=== PATIENT | female | born 1995 | race Two or more races ===

== ENCOUNTER → 2019-12-11 16:20 | Outpatient (BNVA) | payer OTHER, SELFPAY | PROVIDERS: Visit Provider Emergency Medicine | DX: R11.0 Nausea (principal); Z20.828 Contact with and (suspected) exposure to other viral communicable diseases; R68.89 Other general symptoms and signs | CPT/HCPCS: 87400; 87635 ==

== ENCOUNTER 2020-03-10 07:19 | Outpatient (CLI) | payer SELFPAY ==
--- NOTE | 2020-03-10 07:30 | MR_ITS ---
WS: [id number] MRI RIGHT FOREARM with and without CONTRAST. COMPARISON: None Multiplanar, multisequence imaging is performed with and without contrast. Expansile T2 and T2 STIR bright mass in the proximal radius extends over length of 4.0 cm. There is m ild variable signal on the T2 and STIR sequences. Mass is very low signal on the T1 sequence. The cor bertha is thinned but still intact. No edema or enhancement of the adjacent muscles. On the postcontrast sequences there is diffuse enhancement. There is a narrow zone of transition of this medullary-based lesion. No fluid fluid level. No additional lesions are noted within the radius or the ulna. There i s no joint effusion. MR/MR forearm RT wo/w con [id number] IMPRESSION: 1. Nonaggressive but expansile and enhancing mass in the proximal radius. Radi ographic correlation and evaluation would also be very helpful to evaluate for long-term stability and matrix. Differential includes giant cell tumor, EG, fib marquis dysplasia and less likely a low-grade malignancy. 2. Due to the expansile lesion and thinning of the cortex patient is at risk f or pathological fracture. Consider orthopedic follow-up and evaluation.
== END 2020-03-10 07:20 | disposition home or self-care (01) ==
LOC: RADSHAW 07:25
PROVIDERS: PCP Physician Assistant Medical; Visit Provider Physician Assistant Medical
DX: M85.621 Other cyst of bone, right upper arm (principal)
CPT/HCPCS: 73220; A9579

== ENCOUNTER → 2020-06-11 12:20 | Outpatient (BNVA) | payer MEDICAID, SELFPAY | PROVIDERS: PCP Physician Assistant Medical; Visit Provider Emergency Medicine | DX: M25.561 Pain in right knee (principal); S89.91XA Unspecified injury of right lower leg, initial encounter; W19.XXXA Unspecified fall, initial encounter | CPT/HCPCS: 73562 ==

== ENCOUNTER → 2020-08-22 10:51 | Outpatient (BNVA) | payer MEDICAID, SELFPAY | PROVIDERS: PCP Physician Assistant Medical; Visit Provider Nurse Practitioner Family | DX: Z20.828 Contact with and (suspected) exposure to other viral communicable diseases (principal) | CPT/HCPCS: 87635 ==

== ENCOUNTER → 2021-01-27 15:54 | Outpatient (BNVA) | payer MEDICAID, SELFPAY | PROVIDERS: PCP Physician Assistant; Visit Provider Nurse Practitioner Family | DX: S80.01XA Contusion of right knee, initial encounter (principal); X58.XXXA Exposure to other specified factors, initial encounter | CPT/HCPCS: 73562 ==

== ENCOUNTER → 2021-03-05 10:50 | Outpatient (BNVA) | payer MEDICAID, SELFPAY | PROVIDERS: PCP Physician Assistant; Visit Provider Nurse Practitioner Family | DX: Z20.822 Contact with and (suspected) exposure to COVID-19 (principal) | CPT/HCPCS: 87635 ==

== ENCOUNTER → 2021-04-10 14:23 | Outpatient (BNVA) | payer MEDICAID, SELFPAY | PROVIDERS: PCP Physician Assistant; Visit Provider Nurse Practitioner Family | DX: M79.631 Pain in right forearm (principal); M89.9 Disorder of bone, unspecified | CPT/HCPCS: 73090 ==

== ENCOUNTER 2021-07-30 14:18 | Emergency (ER) | payer MEDICAID, SELFPAY ==
[2021-07-30 14:26] VITALS: BP 154/103; PULSE 100; RESP 18; TEMP 36.9; O2SAT 99; BMI 30.1
--- NOTE | 2021-07-30 14:28 | XR_ITS ---
WS: [id number] Exam: XR shoulder LT min 2V* [id number] Date/Time of Exam: 07/30/2021 2:28 PM Reason For Exam: pain The projections of the shoulder reveal no fractures, anomalies, soft tissue swelling, or calcificatio ns. There is normal bony alignment. No irregularity of the bony architecture is noted. XR/XR shoulder LT min 2V* [id number] IMPRESSION: Negative left shoulder.
--- NOTE | 2021-07-30 15:27 | W.ED.UPPEXIN ---
HPI - Extremity Injury (Upper) General: Chief Complaint: Extremity Injury, Upper Stated Complaint: L SHOULDER PAIN Time Seen by Provider: 07/30/21 15:15 Source: patient Mode of arrival: ambulatory Limitations: no limitations History of Present Illness: HPI narrative: Patient is a 26-year-old female who presents to ED today with a complaint of left shoulder pain. Patient tells me 4 days ago she believes she experienced a seizure and during which she landed onto her left shoulder. Patient tells me she has had many seizures previously-states she has an upcoming neurology appointment for her seizures and does not want any form of evaluation for this. Patient also has an upcoming appointment with orthopedics regarding a lytic lesion to her radius. complaint: injury to: left and shoulder Onset (ago): day(s) Other Extremity Injury: Left: shoulder Other injuries: none Place: home Severity: moderate Relieving factors: immobilization Exacerbating factors: movement of extremity Context: fall Associated symptoms: Reports no associated symptoms; Denies neck pain or weakness in extremities Review of Systems Const: Denies: fever(s), chills, body aches, fatigue or malaise Eyes: Denies: change in vision Card: Denies: chest pain Resp: Denies: dyspnea GI: Denies: abdominal pain Musc: Reports: joint pain (L shoulder pain); Denies: neck pain, back pain, extremity pain, extremity swelling or joint swelling Neuro: Denies: headache(s), numbness in extremities, weakness in extremities or sensory changes PFSH ED PFSH: Medical History Exposure to influenza Exposure to SARS-associated coronavirus Seizures Surgical History No pertinent past surgical history Family History Other Cancer Diabetes Hypertension Stroke Social History Smoking and tobacco status: never smoked Second hand smoke exposure: No Smoking risk assessment/counseling performed?: No Alcohol intake: current Alcohol intake frequency: holidays/special occasions only Counseling given: No Counseling given: No Adopted: Yes Lives independently: Yes Household members: significant other and children Current gender identity: Female Female Reproductive History: Date of last menstrual period: 07/21/21 Physical Exam Const: COMMON NORMALS: no acute distress, average body habitus, patient oriented x3, no limitations, healthy appearing, alert and well nourished GENERAL APPEARANCE: cooperative ORIENTATION/CONSCIOUSNESS: Yes awake, Yes oriented to person, Yes oriented to place and Yes oriented to time HENMT: COMMON NORMALS: normocephalic and atraumatic HEAD & SCALP: normocephalic and atraumatic Chest: COMMONS NORMALS: normal inspection of the chest and normal palpation of entire chest wall Resp: COMMON NORMALS: normal respiratory effort and clear to auscultation bilaterally AUSCULTATION: clear to auscultation bilaterally Cardio: COMMON NORMALS: regular rate and regular rhythm RATE: regular rate RHYTHM: regular rhythm Back/Pelvis: COMMON NORMALS: thoracic and lumbar spine normal to inspection, no thoracic nor lumbar tenderness and thoraco-lumbar ROM normal Extremity: GENERAL: Yes normal exam except as noted LEFT UPPER EXTREMITY: Yes shoulder joint (TTP AC joint and overlying scapula) Left shoulder joint: Yes ROM (full but somewhat hesitant ROM) and Yes neurovascular exam (normal) Neuro: CASSIUS COMA SCALE: document GCS findings Cassius coma scale eye opening: Spontaneous Cassius coma scale verbal response: Orientated Sesser coma scale motor response: Obey commands Cassius coma scale total score: 15 COMMON NORMALS: patient oriented x3, moves all extremities, no focal motor deficits, no sensory deficits noted and gait normal SENSORIUM/ORIENTATION: Yes alert, Yes oriented to person, Yes oriented to place and Yes oriented to time Skin: COMMON NORMALS: no rashes or lesions noted GENERAL SKIN EXAM: no rashes or lesions noted TRAUMA: no lacerations or abrasions Course Vital Signs: Vital signs: Vital Signs Temperature 98.5 F 07/30/21 14:26 Pulse Rate 90 07/30/21 15:58 Respiratory Rate 20 H 07/30/21 15:58 Blood Pressure 115/77 07/30/21 15:58 Pulse Oximetry 99 07/30/21 15:58 MDM - Extremity Injury (Upper) MDM Narrative: Medical decision making narrative: XR negative. Recommend anti-inflammatories, ice, and rest. She may follow-up with her orthopedic provider/PCP if symptoms persist. Imaging Data^: XR L shoulder: Radiologist's impression: [address] [address] XRay Report Signed Patient: More Aldana Unit #: [id number] : 1995 Age/Sex: 26 / F ADM Date: 07/30/21 Loc: ER Room/Bed: Attending Dr: Ordering Provider/Ordering MD: Marilee Mcconnell Date of Service: 07/30/21 Procedure(s): XR shoulder LT min 2V* 25793 Accession Number(s): [id number] Report Number: [id number] WS: [id number] Exam: XR shoulder LT min 2V* [id number] Date/Time of Exam: 07/30/2021 2:28 PM Reason For Exam: pain The projections of the shoulder reveal no fractures, anomalies, soft tissue swelling, or calcifications. There is normal bony alignment. No irregularity of the bony architecture is noted. XR/XR shoulder LT min 2V* [id number] IMPRESSION: Negative left shoulder. Dictated By: Stiven Dover DO Signed By: Stiven Dover DO Signed Date/Time: 07/30/211458 DD/ 58 Discharge Plan Discharge Patient Disposition: Home Clinical Impression: Injury of left shoulder Qualifiers: Encounter type: initial encounter Qualified Code(s): S49.92XA - Unspecified injury of left shoulder and upper arm, initial encounter Condition: Stable Prescriptions: No Action albuterol sulfate [ProAir HFA] 90 mcg/actuation HFA aerosol inhaler 2 puff inhalation Q6H PRNRF: 0 albuterol sulfate 2.5 mg /3 mL (0.083 %) solution for nebulization 2.5 mg inhalation Q4H PRNRF: 0 dexamethasone 2 mg tablet 6 mg PO DAILY 5 Days Qty: 15 RF: 0 methocarbamol 750 mg tablet 750 mg PO TID 5 Days Qty: 15 RF: 0 tramadol 50 mg tablet 50 mg PO Q6H PRN (Reason: pain) Qty: 14 RF: 0 budesonide-formoterol [Symbicort] 80-4.5 mcg/actuation HFA aerosol inhaler 2 puff inhalation BID 30 Days Qty: 10.2 RF: 4 Discharge Orders: Discharge ED (Routine); Ordered 07/30/21 Ordered By: Marilee Mcconnell Referrals: Cecily Velásquez PA-C [Primary Care Provider] - Patient Instructions: Shoulder Pain (ED) Coding Level of Care Code ED Gaming Table Operator for Lobo Bullock
[2021-07-30 15:58] VITALS: BP 115/77; PULSE 90; RESP 20; O2SAT 99
== END 2021-07-30 16:01 | disposition home or self-care (01) ==
PROVIDERS: Emergency Provider Physician Assistant; PCP Physician Assistant
DX: S49.92XA Unspecified injury of left shoulder and upper arm, initial encounter (principal); W19.XXXA Unspecified fall, initial encounter
CPT/HCPCS: 73030; 99282

== ENCOUNTER 2021-08-29 10:45 | Emergency (ER) | payer MEDICAID, SELFPAY ==
[2021-08-29 11:16] VITALS: BP 127/85; PULSE 90; RESP 14; TEMP 37; O2SAT 100; BMI 30.1
[2021-08-29 11:31] VITALS: RESP 17
--- NOTE | 2021-08-29 11:41 | W.ED.EXTPRO ---
Documented by User: LORENZO Bacon 08/30/21 08:16 HPI - Extremity Problem General: Chief complaint: Extremity Injury, Upper Stated complaint: R ARM INJURY; BURNING AND NUMBNESS Time Seen by Provider: 08/29/21 11:26 History of Present Illness: HPI Narrative: Patient is a 26-year-old female comes to the ED with pain in right arm. She states that earlier this morning she was taking her dog out she was holding the leash and he sprinted off while her right arm was holding leash. It caused her right arm to jerk suddenly. Since then she has been having pain in her right shoulder right elbow and right wrist. Any abduction or movement of arm causes pain. She also reports feeling some numbness and tingling into her hand. She rates her pain currently an 8 out of 10. Patient did say she has a lesion on one of her bones in her forearm that she has had multiple work-ups done and nobody has been able to give her any answers as to what the lesion is. She says it does cause her chronic pain in her right arm and the doctor told her that it is more susceptible to a fracture. Associated symptoms: Deny chest pain, fever(s) or rash Review of Systems Const: Denies: fever(s), chills or fatigue Eyes: Denies: change in vision or eye discomfort ENMT: Denies: throat pain, odynophagia, nasal discharge or nasal congestion Card: Denies: chest pain, palpitations, edema, swelling of feet/ankles, dyspnea on exertion or orthopnea Resp: Denies: dyspnea, productive cough or non-productive cough GI: Denies: abdominal pain, nausea, vomiting, diarrhea, constipation or hematochezia : Denies: flank pain, dysuria or hematuria Musc: Reports: extremity pain (Right shoulder, elbow and wrist) and limited range of motion (right arm); Denies: neck pain, back pain or extremity swelling Skin/Breast: Denies: rash or new lesions Neuro: Denies: headache(s), numbness in extremities or weakness in extremities PFSH ED PFSH: Medical History Exposure to influenza Exposure to SARS-associated coronavirus Seizures Surgical History No pertinent past surgical history Family History Other Cancer Diabetes Hypertension Stroke Social History Smoking and tobacco status: never smoked Second hand smoke exposure: No Smoking risk assessment/counseling performed?: No Alcohol intake: current Alcohol intake frequency: holidays/special occasions only Counseling given: No Counseling given: No Adopted: Yes Lives independently: Yes Household members: significant other and children Current gender identity: Female Female Reproductive History: Date of last menstrual period: 07/21/21 Physical Exam Const: COMMON NORMALS: no acute distress, patient oriented x3, healthy appearing and alert GENERAL APPEARANCE: cooperative and comfortable HENMT: COMMON NORMALS: normocephalic HEAD & SCALP: normocephalic MOUTH: Normal oral and palatal mucosa present THROAT: posterior oropharynx normal and uvula midline Neck/C-Spine: COMMON NORMALS: supple GENERAL: Yes normal visual inspection Resp: COMMON NORMALS: normal respiratory effort, No retractions, No use of accessory muscles and clear to auscultation bilaterally AUSCULTATION: clear to auscultation bilaterally Cardio: COMMON NORMALS: regular rate, regular rhythm, S1 normal heart sound present, S2 normal heart sound present, No gallops present (Cardio), No clicks present (Cardio), No murmurs present (Cardio) and Peripheral pulses 2+ throughout RATE: regular rate RHYTHM: regular rhythm HEART SOUNDS: S1 normal heart sound present and S2 normal heart sound present PERIPHERAL PULSES: Peripheral pulses 2+ throughout GI: COMMON NORMALS: Normal to inspection, nondistended, normoactive bowel sounds present, Soft to palpation, non-tender and no masses PALPATION: Yes Soft to palpation : COMMON NORMALS: Yes no CVA tenderness BLADDER/KIDNEY EXAM: Yes no CVA tenderness Back/Pelvis: COMMON NORMALS: no CVA tenderness Extremity: NARRATIVE EXTREMITY EXAM: Patient has some tenderness to her AC joint of right shoulder. She also has tenderness to palpation of medial and lateral aspect of right elbow. She has pain in elbow and wrist with any range of motion. Neurovascular intact distally. GENERAL: Yes normal exam except as noted Neuro: COMMON NORMALS: patient oriented x3 and moves all extremities SENSORIUM/ORIENTATION: Yes alert Skin: GENERAL SKIN EXAM: dry skin Course Vital Signs: Vital signs: Vital Signs Temperature 98.6 F 08/29/21 11:16 Pulse Rate 97 08/29/21 14:12 Respiratory Rate 17 08/29/21 14:12 Blood Pressure 116/79 08/29/21 14:12 Pulse Oximetry 99 08/29/21 14:12 MDM - Extremity (Nontraumatic) MDM Narrative: Medical decision making narrative: Patient is a 26-year-old female comes to the ED with right arm injury. Patient says she was taking her dog out and the dog took off while she was holding the leash in right hand. This caused a pulling on her arm and since then she felt up pain in her shoulder, elbow and wrist. Patient did say she has a history of a bone lesion on her radius read by her elbow. She has seen specialists in [place] about the bone lesion and they were not sure what it was and she has not had any other further follow-up. Vital stable. Exam shows some tenderness to palpation over AC joint, elbow. She has pain with range of motion in wrist and elbow. She is neurovascular intact distally. X-ray of wrist elbow and shoulder showed no acute fractures. Patient's elbow x-ray did show the bone lesion and there were some concerns of it changing compared to x-ray done approximately 5 months ago. I talked with Dr. Chamberlain about patient case and the bone lesion findings and he agreed that patient should be referred to Ortho and oncology for further evaluation of the lesion. I put in a referral with case management for patient be seen by orthopedic and oncology for follow-up and further evaluation of bone lesion. Patient was discharged home with a sling and told that case management social worker only contacting the next several days set up an appointment for further evaluation of bone lesion with Ortho and oncology if needed. Patient understood and agree with plan. Imaging Data^: Xray Ortho: Attestation: I personally reviewed and interpreted this imaging study as follows: Radiologist's impression: [address] [place] [address] XRay Report Signed Patient: More Aldana Unit #: [id number] : 1995 Age/Sex: 26 / F ADM Date: 08/29/21 Loc: ER Room/Bed: Attending Dr: Ordering Provider/Ordering MD: Rivera Alexandra Date of Service: 08/29/21 Procedure(s): XR elbow RT min 3V* 43811 Accession Number(s): [id number] Report Number: [id number] WS: [id number] XR elbow RT min 3V* 23574 REASON FOR EXAM: elbow injury with pain, limited ROM FINDINGS: No fracture or dislocation. Compared to previous examination of 04/10/2021 the bone lesion in the proximal radial diaphysis is again noted. No findings of pathologic fracture involving this lesion. No periosteal reaction. No soft tissue abnormality. XR/XR elbow RT min 3V* 71068 IMPRESSION: No acute abnormality. In comparing the lateral view of the current study and the lateral view of, the central/distal portion of this lesion appears to be expanding, producing a larger anterior bulge in the margin of the radius with more thinning of the cortex. The lesion also appears to be more lucent. If this impression is accurate, this would be of concern. Eosinophilic granuloma and giant cell tumor can appear aggressive. Giant cell tumor can develop into aneurysmal bone cyst with increased expansion and thinning of the cortex. The cortex is thinned to the point, that at the this time risk for pathologic fracture would seem significant. This lesion may need to be reevaluated clinically. Dictated By: Balwinder Magaña Jr, MD Signed By: Balwinder Magaña Jr, MD Signed Date/Time: 08/29/21 1240 DD/ [address] [address] XRay Report Signed Patient: More Aldana Unit #: [id number] : 1995 Age/Sex: 26 / F ADM Date: 08/29/21 Loc: ER Room/Bed: Attending Dr: Ordering Provider/Ordering MD: Rivera Alexandra Date of Service: 08/29/21 Procedure(s): XR wrist RT min 3V* 59557 Accession Number(s): [id number] Report Number: [id number] WS: [id number] XR wrist RT min 3V* 95650 REASON FOR EXAM: wrist injury with pain and limite ROM FINDINGS: No fracture or dislocation. No focal bone lesion. Joint spaces are well preserved. No soft tissue abnormality. XR/XR wrist RT min 3V* [id number] IMPRESSION: No acute abnormality. Dictated By: Balwinder Magaña Jr, MD Signed By: Balwinder Magaña Jr, MD Signed Date/Time: 08/29/21 1243 DD/ [address] [address] XRay Report Signed Patient: More Aldana Unit #: [id number] : 1995 Age/Sex: 26 / F ADM Date: 08/29/21 Loc: ER Room/Bed: Attending Dr: Ordering Provider/Ordering MD: Rivera Alexandra Date of Service: 08/29/21 Procedure(s): XR shoulder RT min 2V* 38050 Accession Number(s): [id number] Report Number: [id number] WS: [id number] XR shoulder RT min 2V* 30082 REASON FOR EXAM: shoulder injury with pain FINDINGS: No fracture or dislocation. Normal alignment of the acromial clavicular joint and the glenohumeral joint. No focal bone lesion. No soft tissue abnormality. XR/XR shoulder RT min 2V* 98072 IMPRESSION: No acute abnormality. Dictated By: Balwinder Magaña Jr, MD Signed By: Balwinder Magaña Jr, MD Signed Date/Time: 08/29/21 1205 DD/ 1201 Discharge Plan Discharge Patient Disposition: Home Clinical Impression: Arm pain, right, Radiolucent lesion of bone Condition: Stable Prescriptions: No Action albuterol sulfate [ProAir HFA] 90 mcg/actuation HFA aerosol inhaler 2 puff inhalation Q6H PRNRF: 0 albuterol sulfate 2.5 mg /3 mL (0.083 %) solution for nebulization 2.5 mg inhalation Q4H PRNRF: 0 dexamethasone 2 mg tablet 6 mg PO DAILY 5 Days Qty: 15 RF: 0 methocarbamol 750 mg tablet 750 mg PO TID 5 Days Qty: 15 RF: 0 tramadol 50 mg tablet 50 mg PO Q6H PRN (Reason: pain) Qty: 14 RF: 0 budesonide-formoterol [Symbicort] 80-4.5 mcg/actuation HFA aerosol inhaler 2 puff inhalation BID 30 Days Qty: 10.2 RF: 4 Discharge Orders: Discharge ED (Routine); Ordered 08/29/21 Ordered By: Rivera Alexandra Referrals: Cecily Velásquez PA-C [Primary Care Provider] - Discharge Diet: Regular Discharge Activity: Limit activity as instructed Patient Instructions: Arm Pain (ED), Opioid Safety Activity Restrictions/Additional Instructions: Follow-up with medical provider as directed. Case management should be contacting you in the next several days to set up an appointment with Ortho for further evaluation of bone lesion. Take medications as prescribed. Return to the ER or your medical provider if condition worsens. Please read and understand discharge instructions. Thank you for choosing [facility] for your healthcare needs today. Please realize this is an emergency room and that we are providing you with a medical screening exam and this may not be complete and all inclusive of all the testing and or work up that you may need to determine your ailment or severity of your illness. It is very important that you follow up as instructed or that you return to the Emergency Department should you have concerns or if your condition changes or worsens in any way. Stand Alone Forms: Work/School Release Coding Level of Care Code ED School Traffic Supervisor for Chg Fwd Exam Comprehensive Documented by User: Ken Chamberlain DO 08/30/21 15:42 HPI - Extremity Problem General: Chief complaint: Extremity Injury, Upper Stated complaint: R ARM INJURY; BURNING AND NUMBNESS Time Seen by Provider: 08/29/21 11:26 [facility]: Medical History Exposure to influenza Exposure to SARS-associated coronavirus Seizures Surgical History No pertinent past surgical history Family History Other Cancer Diabetes Hypertension Stroke Social History Smoking and tobacco status: never smoked Second hand smoke exposure: No Smoking risk assessment/counseling performed?: No Alcohol intake: current Alcohol intake frequency: holidays/special occasions only Counseling given: No Counseling given: No Adopted: Yes Lives independently: Yes Household members: significant other and children Current gender identity: Female Course Vital Signs: Vital signs: Vital Signs Temperature 98.6 F 08/29/21 11:16 Pulse Rate 97 08/29/21 14:12 Respiratory Rate 17 08/29/21 14:12 Blood Pressure 116/79 08/29/21 14:12 Pulse Oximetry 99 08/29/21 14:12 MDM - Extremity (Nontraumatic) MDM Narrative: Medical decision making narrative: Chart reviewed and patient discussed with midlevel. Agree with assessment and plan. Discharge Plan Discharge Patient Disposition: Home Clinical Impression: Arm pain, right, Radiolucent lesion of bone Condition: Stable Prescriptions: No Action albuterol sulfate [ProAir HFA] 90 mcg/actuation HFA aerosol inhaler 2 puff inhalation Q6H PRNRF: 0 albuterol sulfate 2.5 mg /3 mL (0.083 %) solution for nebulization 2.5 mg inhalation Q4H PRNRF: 0 dexamethasone 2 mg tablet 6 mg PO DAILY 5 Days Qty: 15 RF: 0 methocarbamol 750 mg tablet 750 mg PO TID 5 Days Qty: 15 RF: 0 tramadol 50 mg tablet 50 mg PO Q6H PRN (Reason: pain) Qty: 14 RF: 0 budesonide-formoterol [Symbicort] 80-4.5 mcg/actuation HFA aerosol inhaler 2 puff inhalation BID 30 Days Qty: 10.2 RF: 4 Discharge Orders: Discharge ED (Routine); Ordered 08/29/21 Ordered By: Rivera Alexandra Referrals: Cecily Velásquez PA-C [Primary Care Provider] - Discharge Diet: Regular Discharge Activity: Limit activity as instructed Patient Instructions: Arm Pain (ED), Opioid Safety Activity Restrictions/Additional Instructions: Follow-up with medical provider as directed. Case management should be contacting you in the next several days to set up an appointment with Ortho for further evaluation of bone lesion. Take medications as prescribed. Return to the ER or your medical provider if condition worsens. Please read and understand discharge instructions. Thank you for choosing [facility] for your healthcare needs today. Please realize this is an emergency room and that we are providing you with a medical screening exam and this may not be complete and all inclusive of all the testing and or work up that you may need to determine your ailment or severity of your illness. It is very important that you follow up as instructed or that you return to the Emergency Department should you have concerns or if your condition changes or worsens in any way. Stand Alone Forms: Work/School Release Coding Level of Care Code ED School Traffic Supervisor for Irag Fwd Exam Comprehensive
--- NOTE | 2021-08-29 11:42 | XR_ITS ---
WS: [id number] XR wrist RT min 3V* [id number] REASON FOR EXAM: wrist injury with pain and limite ROM FINDINGS: No fracture or dislocation. No focal bone lesion. Joint spaces are well preserved. No soft tissue abnormality. XR/XR wrist RT min 3V* 04629 IMPRESSION: No acute abnormality.
--- NOTE | 2021-08-29 11:42 | XR_ITS ---
WS: [id number] XR elbow RT min 3V* 15958 REASON FOR EXAM: elbow injury with pain, limited ROM FINDINGS: No fracture or dislocation. Compared to previous examination of 04/10/2021 the bone lesion in the proximal radial diaphysis is aga in noted. No findings of pathologic fracture involving this lesion. No periosteal reaction. No soft tissue abnormality. XR/XR elbow RT min 3V* 72208 IMPRESSION: No acute abnormality. In comparing the lateral view of the current study and the lateral view of, the central/distal portion of this lesion appears to be expanding, producing a lar josee anterior bulge in the margin of the radius with more thinning of the cortex . The lesion also appears to be more lucent. If this impression is accurate, th is would be of concern. Eosinophilic granuloma and giant cell tumor can appear aggressive. Giant cell t umor can develop into aneurysmal bone cyst with increased expansion and thinnin g of the cortex. The cortex is thinned to the point, that at the this time risk for pathologic fracture would seem significant. This lesion may need to be ree valuated clinically.
--- NOTE | 2021-08-29 11:42 | XR_ITS ---
WS: [id number] XR shoulder RT min 2V* [id number] REASON FOR EXAM: shoulder injury with pain FINDINGS: No fracture or dislocation. Normal alignment of the acromial clavicular joint and the glenohumeral joint. No focal bone lesion. No soft tissue abnormality. XR/XR shoulder RT min 2V* [id number] IMPRESSION: No acute abnormality.
[2021-08-29] MEDS: HYDROcodone-acetaminophen 7.5-325 mg Tablet 1 TAB PO (12:14)
[2021-08-29 14:12] VITALS: BP 116/79; PULSE 97; RESP 17; O2SAT 99
--- NOTE | 2021-08-30 10:34 | DCPLANNER ---
newspaper manager had message to schedule a follow up appointment for patient with ortho. newspaper manager called the ortho clinic, spoke with Nicole, gave clinic patients information. newspaper manager was told that patients information would be printed and reviewed. Clinic will call patient with appointment information.
--- NOTE | 2021-08-31 08:01 | DCPLANNER ---
Addendum entered by Asuncion Louise 10/12/21 15:39: Patient had a follow up appointment scheduled with ortho 09.19.21 - patient did attend appointment. Original Note: Patient has a follow up appointment scheduled for Sunday, September 19, 2021 at 10:[address] Mina at ortho. Clinic will call patient with appointment information.
== END 2021-08-29 14:04 | disposition home or self-care (01) ==
PROVIDERS: Emergency Provider Physician Assistant; PCP Physician Assistant
DX: M79.601 Pain in right arm (principal); M89.9 Disorder of bone, unspecified
CPT/HCPCS: 73030; 73080; 73110; 99283

== ENCOUNTER → 2021-09-24 14:47 | Outpatient (BNVA) | payer MEDICAID, SELFPAY | PROVIDERS: PCP Physician Assistant; Visit Provider Nurse Practitioner Family | DX: M89.9 Disorder of bone, unspecified (principal) | CPT/HCPCS: 73090 ==

== ENCOUNTER → 2021-10-04 17:08 | Outpatient (BNVA) | payer MEDICAID, SELFPAY | PROVIDERS: PCP Physician Assistant; Visit Provider Emergency Medicine | DX: M89.9 Disorder of bone, unspecified (principal) | CPT/HCPCS: 73090 ==

== ENCOUNTER 2021-10-25 11:21 | Emergency (ER) | payer MEDICAID, SELFPAY ==
[2021-10-25 12:02] VITALS: BP 128/85; PULSE 89; RESP 18; TEMP 36.6; O2SAT 99; BMI 31.8
--- NOTE | 2021-10-25 12:20 | XR_ITS ---
WS: [id number] XR forearm RT 2V [id number] REASON FOR EXAM: history of lytic bone lesion, injury with increased pain FINDINGS: Bone lesion in the right proximal radius which is been described on multiple radiographs since 021. Lesion has continued to grow and expand since that time. It has expanded 10 mm in short diameter compared to the previous examination of 10/04/2021. Cortex overlying this lesion is extremely thin an d in places is absent. The lesion involves the full diameter of the radius. No fracture identified at this time. XR/XR forearm RT 2V [id number] IMPRESSION: Continuing expansion of the lesion in the proximal left right radius as above. Minor trauma would likely fracture the radius at this point.
--- NOTE | 2021-10-25 12:22 | ED_ITS ---
HPI - Extremity Problem General: Chief complaint: Extremity Injury, Upper Stated complaint: Right Wrist pain, PT states a hole in radius bone Time Seen by Provider: 10/25/21 12:08 History of Present Illness: Patient is a 26-year-old female comes to the ED with right forearm pain. Patient has a known lytic bone lesion and forearm and is currently scheduled to see a specialist in [facility] next week. Over the past couple days she has been moving furniture and stuff around her house and she is now having increased pain in right forearm. She was supposed to be in soft cast and not using right arm and till seen by specialist in [place] but patient says the soft cast was uncomfortable so she has not been wearing it and threw it away. Denies any fall or any other injury to the right arm. Patient thinks she overworked her right arm moving stuff which is causing her symptoms. She is just been taking Tylenol for pain. Pain is rated an 8 out of 10. Associated symptoms: Deny chest pain, fever(s) or rash Review of Systems Const: Denies: fever(s), chills or fatigue Eyes: Denies: change in vision or eye discomfort ENMT: Denies: throat pain, odynophagia, nasal discharge or nasal congestion Card: Denies: chest pain, palpitations, edema, swelling of feet/ankles, dyspnea on exertion or orthopnea Resp: Denies: dyspnea, productive cough or non-productive cough GI: Denies: abdominal pain, nausea, vomiting, diarrhea, constipation or hematochezia : Denies: flank pain, dysuria or hematuria Musc: Reports: extremity pain (right forearm); Denies: neck pain, back pain or extremity swelling Skin/Breast: Denies: rash or new lesions Neuro: Denies: headache(s), numbness in extremities or weakness in extremities PFSH ED PFSH: Medical History Exposure to influenza Exposure to SARS-associated coronavirus Seizures Surgical History No pertinent past surgical history Family History Other Cancer Diabetes Hypertension Stroke Social History Second hand smoke exposure: No Smoking risk assessment/counseling performed?: No Alcohol intake: current Alcohol intake frequency: holidays/special occasions only Counseling given: No Counseling given: No Adopted: Yes Lives independently: Yes Household members: significant other and children Current gender identity: Female Female Reproductive History: Date of last menstrual period: 07/21/21 Physical Exam Const: COMMON NORMALS: no acute distress, patient oriented x3 and alert GENERAL APPEARANCE: cooperative and comfortable HENMT: COMMON NORMALS: normocephalic HEAD & SCALP: normocephalic MOUTH: Normal oral and palatal mucosa present THROAT: posterior oropharynx normal an d uvula midline Neck/C-Spine: COMMON NORMALS: supple GENERAL: Yes normal visual inspection Resp: COMMON NORMALS: normal respiratory effort, No retractions, No use of accessory muscles and clear to auscultation bilaterally AUSCULTATION: clear to auscultation bilaterally Cardio: COMMON NORMALS: regular rate, regular rhythm, S1 normal heart sound present, S2 normal heart sound present, No gallops present (Cardio), No clicks present (Cardio), No murmurs present (Cardio) and Peripheral pulses 2+ throughout RATE: regular rate RHYTHM: regular rhythm HEART SOUNDS: S1 normal heart sound present and S2 normal heart sound present PERIPHERAL PULSES: Peripheral pulses 2+ throughout GI: COMMON NORMALS: Normal to inspection, nondistended, normoactive bowel sounds present, Soft to palpation, non-tender and no masses PALPATION: Yes Soft to palpation : COMMON NORMALS: Yes no CVA tenderness BLADDER/KIDNEY EXAM: Yes no CVA tenderness Back/Pelvis: COMMON NORMALS: no CVA tenderness Extremity: NARRATIVE EXTREMITY EXAM: Right forearm?no visible deformity, ecchymosis or swelling seen. Patient does have some proximal forearm tenderness to palpation. Neurovascular intact distally. Neuro: COMMON NORMALS: patient oriented x3 and moves all extremities SENSORIUM/ORIENTATION: Yes alert Skin: COMMON NORMALS: no rashes or lesions noted GENERAL SKIN EXAM: no rashes or lesions noted and dry skin Course Vital Signs: Vital signs: Vital Signs Temperature 97.9 F 10/25/21 12:02 Pulse Rate 81 10/25/21 13:32 Respiratory Rate 16 10/25/21 13:32 Blood Pressure 118/86 10/25/21 13:32 Pulse Oximetry 99 10/25/21 13:32 MDM - Extremity (Nontraumatic) Medical Decision Making Patient is a 26-year-old female comes to the ED with right forearm pain. Patient has a known lytic bone lesion and forearm that she is currently getting further evaluation for. She has an appointment with a specialist that she was referred to up in [facility] to further evaluate bone lesion. She was moving some things around her house and is now having some increased pain in right forearm. No visible deformity seen but there is some proximal right forearm tenderness to palpation. Neurovascular tact distally. X-ray of right forearm showed continuing expansion of bone lesion in proximal left right radius. She is at increased risk of fracturing bones due to lesion. Patient was put in a long-arm splint and sling and discharged home with a prescription for hydrocodone for pain. She has an appointment to see the specialist next week for further evaluation. Return to ED precautions given. Patient understood agree with plan. Lab Data Radiology Impressions Forearm X-Ray 10/25/21 12:20 IMPRESSION: Continuing expansion of the lesion in the proximal left right radius as above. Minor trauma would likely fracture the radius at this point. Discharge Plan Discharge Patient Disposition: Home Clinical Impression: Lytic lesion of bone on x-ray Condition: Stable Prescriptions: No Action albuterol sulfate [ProAir HFA] 90 mcg/actuation HFA aerosol inhaler 2 puff inhalation Q6H PRN0RF albuterol sulfate 2.5 mg /3 mL (0.083 %) solution for nebulization 2.5 mg inhalation Q4H PRN0RF gabapentin 100 mg capsule 100 mg PO DAILY Qty: 60 0RF Discharge Orders: Discharge ED (Routine); Ordered 10/25/21 Ordered By: Rivera Alexandra Referrals: Cecily Velásquez PA-C [Primary Care Provider] - Discharge Diet: Regular Discharge Activity: Limit activity as instructed Patient Instructions: Opioid Safety Activity Restrictions/Additional Instructions: Follow-up with your specialist in [facility] next week as scheduled. Take medications as prescribed. Keep splint on and dry and limit activity with right arm. Return to the ER or your medical provider if condition worsens. Please read and understand discharge instructions. Thank you for choosing [facility] for your healthcare needs today. Please realize this is an emergency room and that we are providing you with a medical screening exam and this may not be complete and all inclusive of all the testing and or work up that you may need to determine your ailment or severity of your illness. It is very important that you follow up as instructed or that you return to the Emergency Department should you have concerns or if your condition changes or worsens in any way. Coding Level of Care Code ED Printed Circuit Board Preassembler for Lobo Bullock Exam Comprehensive
[2021-10-25 13:32] VITALS: BP 118/86; PULSE 81; RESP 16; O2SAT 99
== END 2021-10-25 13:32 | disposition home or self-care (01) ==
PROVIDERS: Emergency Provider Physician Assistant; PCP Physician Assistant
DX: M89.9 Disorder of bone, unspecified (principal)
CPT/HCPCS: 29105; 73090; 99283

== ENCOUNTER → 2021-11-20 08:09 | Outpatient (BNVA) | payer MEDICAID, SELFPAY | PROVIDERS: PCP Physician Assistant; Referring Provider Orthopaedic Surgery; Visit Provider Specialist | DX: G56.21 Lesion of ulnar nerve, right upper limb (principal) | CPT/HCPCS: 95886; 95908; 99202 ==

== ENCOUNTER → 2021-12-13 16:26 | Outpatient (BNVA) | payer MEDICAID, SELFPAY | PROVIDERS: PCP Physician Assistant; Visit Provider Emergency Medicine | DX: M89.9 Disorder of bone, unspecified (principal); M79.631 Pain in right forearm | CPT/HCPCS: 73090 ==

== ENCOUNTER 2022-04-19 16:36 | Emergency (ER) | payer MEDICAID, SELFPAY ==
[2022-04-19 16:49] VITALS: BP 131/82; PULSE 94; RESP 16; TEMP 36.6; O2SAT 98
[2022-04-19 18:49] LABS: Basophils % 0.3 %; Eosinophils # 0.2 10^3/uL (0.0-0.8); Eosinophils % 2.3 %; Hematocrit 41.1 % (37.0-47.0); Hemoglobin 13.3 g/dL (11.5-15.3); Lymphocytes # 2.3 10^3/uL (0.8-4.8); Lymphocytes % 22.8 %; Mean Corpuscular HGB Conc 32.4 g/dL (30.0-36.0); Mean Corpuscular Hemoglobin 29.7 pg (28.0-34.0); Mean Corpuscular Volume 91.7 fl (81-99); Mean Platelet Volume 10.7 fL (7.4-10.4); Monocytes # 0.7 10^3/uL (0.2-0.9); Monocytes % 7.3 %; Neutrophils # 6.65 10^3/uL (1.8-7.7); Neutrophils % 67.1 %; Nucleated Red Blood Cells % 0 %; Platelet Count 327 10^3/cmm (130-400); Red Blood Count 4.48 10^6/uL (4.1-5.3); Red Cell Distribution Width 12.3 % (12.1-15.1); White Blood Count 9.9 10^3/uL (4.0-10.0)
[2022-04-19 19:25] LABS: Alanine Aminotransferase 9 U/L (0-33); Albumin Level 4.2 g/dL (3.5-5.2); Alkaline Phosphatase 76 IU/L (35-105); Aspartate Amino Transferase 12 U/L (0-32); Blood Urea Nitrogen 13 mg/dL (6-20); Calcium 8.9 mg/dL (8.5-10.5); Carbon Dioxide 26 mmol/L (22-29); Chloride 106 mmol/L (98-107); Globulin 2.7 g/dL (1.3-4.6); Glomerular Filtration Rate 121.8 mL/min (90-130); Glucose 111 mg/dL (65-115); Osmolality Calculated 291 mOsm/kg (285-295); Prolactin 11.46 ng/mL (4.8-23.3); Sodium 140 mmol/L (136-145); Total Bilirubin 0.2 mg/dL (0.15-1.2); Total Protein 6.9 g/dL (6.6-8.7)
--- NOTE | 2022-04-19 19:51 | ED_ITS ---
HPI - Chest Pain General: Chief Complaint: Chest Pain Stated Complaint: Seizure like activity? Heart palpitations Time Seen by Provider: 04/19/22 19:51 History of Present Illness: Ms. Aldana is a 27-year-old lady with history of bony tumor, history of COVID, asthma, seizures and nonepileptic events who presents to the emergency department due to concern of chest pain and headache. Headache is throbbing in nature onset was sudden approximately 5 days ago. She endorses constant symptoms that sometimes radiate down the side of her neck. She reports associated nausea but no vomiting. She does have light and sound sensitivity. She additionally endorses episodes of missing time or seizure-like activity associated with headache. Denies history of migraines. 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 Additionally she reports longstanding history of chest discomfort which is intermittent in nature. She reports a history of having this evaluated though the results were lost and she does not know what the results are. She notes baseline tachycardia and becomes more symptomatic with irregular pulse whenever her heart rate drops below 70. No other specific changes in health, exacerbating, or alleviating factors identified. Onset (ago): month(s) Timing of current episode: episodic Prior episodes: Yes Pain location: substernal Severity: moderate Quality: heaviness Associated symptoms: Reports palpitations Review of Systems General: Reports: 10 or more systems reviewed and unremarkable except in HPI and below Card: Reports: palpitations [facility] ED PFSH: Medical History Exposure to influenza Exposure to SARS-associated coronavirus Seizures Surgical History No pertinent past surgical history Family History Other Cancer Diabetes Hypertension Stroke Social History Smoking and tobacco status: never smoked Second hand smoke exposure: No Smoking risk assessment/counseling performed?: No Alcohol intake: current Alcohol intake frequency: holidays/special occasions only Counseling given: No Counseling given: No Adopted: Yes Lives independently: Yes Household members: significant other and children Current gender identity: Female Female Reproductive History: Date of last menstrual period: 07/21/21 Physical Exam Const: COMMON NORMALS: patient oriented x3 and alert GENERAL APPEARANCE: cooperative and well developed HENMT: COMMON NORMALS: normocephalic and atraumatic HEAD & SCALP: normocephalic and atraumatic THROAT: posterior oropharynx normal Eye: COMMON NORMALS: conjunctivae normal CONJUNCTIVA: Yes conjunctivae normal SCLERA: sclerae normal Neck/C-Spine: COMMON NORMALS: supple GENERAL: Yes trachea midline Resp: COMMON NORMALS: normal respiratory effort EFFORT & INSPECTION: Yes able to speak in complete sentences Cardio: COMMON NORMALS: regular rate and regular rhythm RATE: regular rate RHYTHM: regular rhythm HEART SOUNDS: Murmur heart sound present (10/21) GI: COMMON NORMALS: Soft to palpation PALPATION: Yes Soft to palpation and No Tenderness to palpation present (GI) PERCUSSION: normal to percussion Extremity: GENERAL: Yes normal exam except as noted and No edema Neuro: COMMON NORMALS: patient oriented x3, CN's II-XII intact bilaterally, moves all extremities, no focal motor deficits and no sensory deficits noted SENSORIUM/ORIENTATION: Yes alert and No Orientation impaired Psych: COMMON NORMALS: mental status grossly normal and Normal thought process present THOUGHT PROCESS: Normal thought process present Course ED course: - Patient was seen and evaluated by me at bedside - Patient placed on cardiac monitors, IV access obtained - Initial evaluation notable for exam as above - Labs and xrays personally interpreted by me. EKG shows sinus rhythm, no STEMI - Fluids, analgesia, and headache treatment given - Labs notable for no leukocytosis, normal hemoglobin. No acute metabolic arrangement. Delta troponin negative. Negative urinalysis - Imaging notable for no lobar consolidation or pneumothorax. Given change in headache CT head ordered and negative. - Upon serial reexamination after treatment the patient was improved - Based on patient history, evaluation, and testing as interpreted the most likely cause of the patient's condition is chest pain and headache with appropriate improvement in headache and low risk by heart score for chest pain. - The results of ED evaluation were discussed with the patient including prescriptions and/or symptomatic cares (if applicable) including appropriate and responsible use, followup plan, and return precautions. The patient verbalized understanding and felt safe for discharge. - Patient discharged in satisfactory condition. Note: Click bubbles or prepopulated carey in note writing are used for assistance with data collection and billing and are inherently more limited than narrative and other text portions of this note. Please use narrative for additional clinical history and defer to narrative/free test for any case of contradictory information. If information appears in only free text or click bubble it should be considered present or absent as reported. Please contact note fiction and nonfiction writer prose for clarifications of clinical information or contradictory information. MDM is a brief summary, contradictory or erroneous seeming information should be clarified and full note should be reviewed. Vital Signs: Vital signs: Vital Signs Temperature 97.8 F 04/19/22 16:49 Pulse Rate 71 04/19/22 23:00 Respiratory Rate 23 H 04/19/22 23:00 Blood Pressure 112/71 04/19/22 23:00 Pulse Oximetry 99 04/19/22 23:00 Oxygen Delivery Me thod 04/19/22 23:00 MDM - Chest Pain Medical Decision Making 27-year-old lady presenting with chest pain and change in headache from normal headaches. No focal neurodeficits. ED evaluation negative for acute cause. Patient is overall low risk and had improvement in headache with treatment. Satisfactory for outpatient management. Medical Records I reviewed the patient's medical records. Lab Data I reviewed the patient's lab results. : 04/19/22 18:40 04/19/22 18:40 Radiology Impressions Chest X-Ray 04/19/22 21:03 IMPRESSION: No acute findings. Head CT 04/19/22 21:03 IMPRESSION: No acute intracranial abnormality. Laboratory Results WBC 9.9 10^3/uL (4.0-10.0) 04/19/22 18:40 RBC 4.48 10^6/uL (4.1-5.3) 04/19/22 18:40 Hgb 13.3 g/dL (11.5-15.3) 04/19/22 18:40 Hct 41.1 % (37.0-47.0) 04/19/22 18:40 MCV 91.7 fl (81-99) 04/19/22 18:40 MCH 29.7 pg (28.0-34.0) 04/19/22 18:40 MCHC 32.4 g/dL (30.0-36.0) 04/19/22 18:40 RDW 12.3 % (12.1-15.1) 04/19/22 18:40 Plt Count 327 10^3/cmm (130-400) 04/19/22 18:40 MPV 10.7 fL (7.4-10.4) H 04/19/22 18:40 Neut % (Auto) 67.1 % 04/19/22 18:40 Lymph % (Auto) 22.8 % 04/19/22 18:40 [place] % (Auto) 7.3 % 04/19/22 18:40 Eos % (Auto) 2.3 % 04/19/22 18:40 Baso % (Auto) 0.3 % 04/19/22 18:40 Neut # (Auto) 6.65 10^3/uL (1.8-7.7) 04/19/22 18:40 Lymph # (Auto) 2.3 10^3/uL (0.8-4.8) 04/19/22 18:40 [place] # (Auto) 0.7 10^3/uL (0.2-0.9) 04/19/22 18:40 Eos # (Auto) 0.2 10^3/uL (0.0-0.8) 04/19/22 18:40 Baso # (Auto) 0.0 10^3/uL (0.0-0.1) 04/19/22 18:40 Nucleated RBC % (auto) 0 % 04/19/22 18:40 Nucleated RBCs # 0.0 /100WBC 04/19/22 18:40 D-Dimer 0.53 ug/mIFEU (0-0.59) 04/19/22 20:25 Sodium 140 mmol/L (136-145) 04/19/22 18:40 Potassium 4.0 mmol/L (3.5-5.1) 04/19/22 18:40 Chloride 106 mmol/L (98-107) 04/19/22 18:40 Carbon Dioxide 26 mmol/L (22-29) 04/19/22 18:40 Anion Gap 12.0 (5-19) 04/19/22 18:40 BUN 13 mg/dL (6-20) 04/19/22 18:40 Creatinine 0.6 mg/dL (0.5-0.9) 04/19/22 18:40 GFR Calculation 121.8 mL/min (90-130) 04/19/22 18:40 Glucose 111 mg/dL (65-115) 04/19/22 18:40 Calculated Osmolality 291 mOsm/kg (285-295) 04/19/22 18:40 Calcium 8.9 mg/dL (8.5-10.5) 04/19/22 18:40 Total Bilirubin 0.2 mg/dL (0.15-1.2) 04/19/22 18:40 AST 12 U/L (0-32) 04/19/22 18:40 ALT 9 U/L (0-33) 04/19/22 18:40 Alkaline Phosphatase 76 IU/L (35-105) 04/19/22 18:40 Troponin T Baseline 6 ng/L (0-10) 04/19/22 20:25 Troponin T 120 Minute 6.00 ng/L (0-10) 04/19/22 22:00 Delta Troponin T 0 ABS# (0-10) 04/19/22 22:00 Total Protein 6.9 g/dL (6.6-8.7) 04/19/22 18:40 Albumin 4.2 g/dL (3.5-5.2) 04/19/22 18:40 Globulin 2.7 g/dL (1.3-4.6) 04/19/22 18:40 Prolactin 11.46 ng/mL (4.8-23.3) 04/19/22 18:40 HCG, Qual Negative (Negative) 04/19/22 20:00 Urine Color Yellow (Yellow) 04/19/22 20:00 Urine Appearance Clear (CLEAR) 04/19/22 20:00 Urine pH 7 (5-7) 04/19/22 20:00 Ur Specific [place] 1.010 (1.005-1.030) 04/19/22 20:00 Urine Protein Neg (Negative) 04/19/22 20:00 Urine Glucose (UA) Norm (Normal) 04/19/22 20:00 Urine Ketones Negative (Negative) 04/19/22 20:00 Urine Blood Neg (Negative) 04/19/22 20:00 Urine Nitrate Negative (Negative) 04/19/22 20:00 Urine Bilirubin Neg (Negative) 04/19/22 20:00 Urine Urobilinogen Neg mg/dL (Negative) 04/19/22 20:00 Ur Leukocyte Esterase Negative (Negative) 04/19/22 20:00 Discharge Plan Discharge Patient Disposition: Home Clinical Impression: Headache, Chest pain, Transient neurological symptoms Condition: Stable Prescriptions: New Reglan 10 mg tablet 10 mg PO Q6H PRN (Reason: headache) Qty: 10 0RF No Action albuterol sulfate [ProAir HFA] 90 mcg/actuation HFA aerosol inhaler 2 puff inhalation Q6H PRN (Reason: Shortness Of Breath) albuterol sulfate 2.5 mg /3 mL (0.083 %) solution for nebulization 2.5 mg inhalation Q4H PRN (Reason: Shortness Of Breath) Discharge Orders: Discharge ED (Routine); Ordered 04/19/22 Ordered By: Goldy Palmer Other Ambulatory Orders: ECG holter monitor 14 Days (Routine) Timeframe: 1 Week Facility: [facility] - Location: Radiology Ordered By: Goldy Palmer Referrals: Ceciyl Velásquez PA-C [Primary Care Provider] - Discharge Diet: Usual diet Discharge Activity: Increase activity as tolerated Patient Instructions: Chest Pain (ED), Migraine Headache (ED) Activity Restrictions/Additional Instructions: Does notThank you for visiting the emergency department. You were seen and evaluated for headache, abnormal neurologic events, and chest pain. The exact cause of your symptoms is unclear as discussed for hospitalization at this time. I will message case management and order further cardiac evaluation. You should be contacted regarding this. Please follow-up with your primary care provider. Return to the emergency department for any new neurologic symptoms, severe or uncontrolled symptoms, or anything else that you are concerned about a feel needs emergency department evaluation. Stand Alone Forms: Work/School Release Coding Level of Care Code ED Medical Secretary for Chg Fwd Exam Comprehensive
[2022-04-19 19:58] VITALS: BP 137/87; PULSE 92; RESP 18; O2SAT 100
[2022-04-19 20:02] LABS: Add Urine Microscopic? NO; Charge for UA Resulting for Rev
[2022-04-19 20:17] LABS: Bilirubin Urine Neg (Negative); Blood Urine Neg (Negative); Glucose Urine UA Norm (Normal); Ketones Urine Negative (Negative); Leukocyte Esterase Urine Negative (Negative); Nitrate Urine Negative (Negative); Protein Urine Neg (Negative); Urine Appearance Clear (CLEAR); Urine Color Yellow (Yellow); Urobilinogen Urine Neg (Negative); pH Urine 7 (5-7)
[2022-04-19] MEDS: acetaminophen 500 mg Tablet 1000 MG PO (20:31)
[2022-04-19 20:50] LABS: HCG Qualitative Urine. Negative (Negative)
[2022-04-19 21:00] LABS: D Dimer 0.53 ug/mIFEU (0-0.59)
--- NOTE | 2022-04-19 21:00 | ECG_ITS ---
[facility] Test Date: 2022-04-19 Pat Name: More Aldana Department: Room: Gender: Female Fan Mail Clerk: : 1995 Requested By: Goldy Palmer Order Number: [id number] Adam MD: Noah Saleem M.D. Measurements Intervals [place] Rate: 93 P: 58 [place]: 162 QRS: 46 QRSD: 78 T: 35 QT: 372 QTc: 464 Interpretive Statements SINUS RHYTHM No previous ECG available for comparison Electronically Signed On 04-20-2022 18:53:11 CDT by Noah Saleem M.D. [id number]
--- NOTE | 2022-04-19 21:03 | CTR_ITS ---
PROCEDURE INFORMATION: Exam: CT Head Without Contrast Exam date and time: 04/19/2022 9:43 PM Age: 27 years old Clinical indication: Pain; Headache; Patient HX: C/O left sided YODER. ; Additional info: L sided headache TECHNIQUE: Imaging protocol: Computed tomography of the head without contrast. Radiation optimization: All CT scans at this facility use at least one of these dose optimization techniques: automated exposure control; mA and/or kV adjustment per patient size (includes targeted exams where dose is matched to clinical indication); or iterative reconstruction. COMPARISON: No relevant prior studies available. RADIATION DOSE METRICS: Total DLP (mGy-cm): 1145.08 FINDINGS: Brain: Normal. No hemorrhage. Unremarkable white matter. No mass effect. Cerebral ventricles: No ventriculomegaly. Paranasal sinuses: Visualized sinuses are unremarkable. No fluid levels. Mastoid air cells: Visualized mastoid air cells are well aerated. Bones/joints: Unremarkable. No acute fracture. Soft tissues: Unremarkable. CT/CT head wo con* [id number] IMPRESSION: No acute intracranial abnormality.
--- NOTE | 2022-04-19 21:03 | XRR_ITS ---
PROCEDURE INFORMATION: Exam: XR Chest Exam date and time: 04/19/2022 9:20 PM Age: 27 years old Clinical indication: Angina; Additional info: Chest pain TECHNIQUE: Imaging protocol: Radiologic exam of the chest. Views: 1 view. COMPARISON: CR XR shoulder RT min 2V* [id number] 08/29/2021 11:55 AM FINDINGS: Lungs: Unremarkable. No consolidation. Pleural spaces: Unremarkable. No pleural effusion. No pneumothorax. Heart/Mediastinum: Unremarkable. No cardiomegaly. Bones/joints: Unremarkable. XR/XR chest 1V portable [id number] IMPRESSION: No acute findings.
[2022-04-19 21:05] LABS: Troponin(5th) Baseline 6 ng/L (0-10)
[2022-04-19] MEDS: sodium chloride 0.9% 1,000 ML 999 ML IV (21:34)
[2022-04-19] MEDS: diphenhydrAMINE 50 mg/mL SDV 1mL 25 MG IVP (21:34)
[2022-04-19] MEDS: metoclopramide 5 mg/mL SDV 2 mL 10 MG IVP (21:34)
[2022-04-19 22:12] VITALS: BP 121/69; PULSE 79; RESP 19; O2SAT 99
[2022-04-19 22:30] VITALS: BP 107/75; PULSE 73; RESP 18; O2SAT 99
[2022-04-19 23:00] VITALS: BP 112/71; PULSE 71; RESP 23; O2SAT 99
[2022-04-19 23:10] LABS: Troponin 5 2HR Delta 0 ABS# (0-10)
--- NOTE | 2022-04-24 11:35 | DCPLANNER ---
Addendum entered by Asuncion Louise 06/07/22 12:27: Patient had an appointment for 14 day halter - patient did attend appointment. Addendum entered by Asuncion Louise 04/26/22 14:44: Patient has a follow up appointment scheduled for Friday, May 01, 2022 at 1:00 at [facility] for a 14 day halter monitor. Original Note: operation manager had message to schedule an out patient 14 day halter monitor for patient. operation manager sent [facility] asking to look to see if they see the order or if they need an order faxed to the clinic. operation manager also had message to schedule an outpatient echocardiogram for patient. operation manager faxed signed order to centralized scheduling, who will call patient with appointment information. operation manager also had message to schedule a follow up appointment for patient with neurology. operation manager sent patients information to the front staff at neurology. Patients information will be printed and reviewed. Clinic will call patient with appointment information.
== END 2022-04-19 23:42 | disposition home or self-care (01) ==
PROVIDERS: Family Medicine; Emergency Provider Emergency Medicine; PCP Physician Assistant
DX: R07.9 Chest pain, unspecified (principal); R51.9 Headache, unspecified; R29.818 Other symptoms and signs involving the nervous system
CPT/HCPCS: 36415; 70450; 71045; 80053; 81003; 81025; 84146; 84484; 85025; 85378; 93005; 96374; 96375; 99285; J1200; J2765; J7030

== ENCOUNTER → 2022-04-30 14:42 | Outpatient (BNVA) | payer MEDICAID, SELFPAY | PROVIDERS: PCP Physician Assistant; Visit Provider Emergency Medicine | DX: Z20.822 Contact with and (suspected) exposure to COVID-19 (principal); J45.21 Mild intermittent asthma with (acute) exacerbation; J00 Acute nasopharyngitis [common cold] | CPT/HCPCS: 87426 ==

== ENCOUNTER → 2022-05-21 15:39 | Outpatient (BNVA) | payer MEDICAID, SELFPAY | PROVIDERS: PCP Physician Assistant; Visit Provider Emergency Medicine | DX: N93.8 Other specified abnormal uterine and vaginal bleeding (principal) | CPT/HCPCS: 81025 ==

== ENCOUNTER → 2022-05-28 13:44 | Outpatient (BNVA) | payer MEDICAID, SELFPAY | PROVIDERS: PCP Physician Assistant; Visit Provider Emergency Medicine | DX: R31.9 Hematuria, unspecified (principal); R11.0 Nausea; R31.0 Gross hematuria; N39.0 Urinary tract infection, site not specified | CPT/HCPCS: 81000; 81025; 87086 ==

== ENCOUNTER → 2022-11-21 10:20 | Outpatient (BNVA) | payer MEDICAID, SELFPAY | PROVIDERS: PCP Physician Assistant; Visit Provider Emergency Medicine | DX: M79.631 Pain in right forearm (principal) | CPT/HCPCS: 73090 ==

== ENCOUNTER → 2022-12-31 12:19 | Outpatient (BNVA) | payer MEDICAID, SELFPAY | PROVIDERS: PCP Physician Assistant; Visit Provider Nurse Practitioner Family | DX: M79.601 Pain in right arm (principal) | CPT/HCPCS: 73090 ==

== ENCOUNTER → 2023-01-27 12:57 | Outpatient (BNVA) | payer OTHER, MEDICAID, SELFPAY | PROVIDERS: PCP Physician Assistant; Visit Provider Nurse Practitioner Family | DX: N92.6 Irregular menstruation, unspecified (principal); Z32.02 Encounter for pregnancy test, result negative | CPT/HCPCS: 81025; 84703 ==

== ENCOUNTER → 2023-08-18 09:38 | Outpatient (BNVA) | payer MEDICAID, SELFPAY | PROVIDERS: PCP Nurse Practitioner; Visit Provider Nurse Practitioner | DX: J02.9 Acute pharyngitis, unspecified (principal); G56.21 Lesion of ulnar nerve, right upper limb; M79.601 Pain in right arm | CPT/HCPCS: 87070 ==

== ENCOUNTER → 2023-09-15 11:10 | Outpatient (BNVA) | payer MEDICAID, SELFPAY | PROVIDERS: PCP Nurse Practitioner; Visit Provider Emergency Medicine | DX: M79.601 Pain in right arm (principal) | CPT/HCPCS: 73090 ==

== ENCOUNTER → 2023-10-16 09:44 | Outpatient (BNVA) | payer MEDICAID, SELFPAY | PROVIDERS: PCP Nurse Practitioner; Visit Provider Nurse Practitioner | DX: R63.5 Abnormal weight gain (principal) | CPT/HCPCS: 80053; 83036; 84443; 85025 ==

== ENCOUNTER → 2023-11-14 10:11 | Outpatient (BNVA) | payer MEDICAID, SELFPAY | PROVIDERS: PCP Nurse Practitioner; Visit Provider Nurse Practitioner | DX: M79.601 Pain in right arm (principal); G56.21 Lesion of ulnar nerve, right upper limb | CPT/HCPCS: 73090 ==

== ENCOUNTER → 2023-12-02 13:39 | Outpatient (BNVA) | payer MEDICAID, SELFPAY | PROVIDERS: PCP Nurse Practitioner; Visit Provider Nurse Practitioner | DX: M25.50 Pain in unspecified joint (principal); G56.21 Lesion of ulnar nerve, right upper limb | CPT/HCPCS: 85025 ==

== ENCOUNTER → 2023-12-05 09:33 | Outpatient (BNVA) | payer MEDICAID, SELFPAY | PROVIDERS: PCP Nurse Practitioner; Visit Provider Emergency Medicine | DX: Z34.90 Encounter for supervision of normal pregnancy, unspecified, unspecified trimester (principal); Z3A.01 Less than 8 weeks gestation of pregnancy | CPT/HCPCS: 81025 ==

== ENCOUNTER → 2023-12-09 10:59 | Outpatient (BNVA) | payer MEDICAID, SELFPAY | PROVIDERS: PCP Nurse Practitioner; Visit Provider Nurse Practitioner | DX: M25.50 Pain in unspecified joint (principal) | CPT/HCPCS: 85025; 85651; 86038; 86140 ==

== ENCOUNTER → 2024-05-01 09:29 | Outpatient (BNVA) | payer MEDICAID, SELFPAY | PROVIDERS: PCP Nurse Practitioner; Visit Provider Nurse Practitioner Family | DX: R53.83 Other fatigue (principal) | CPT/HCPCS: 87426 ==

== ENCOUNTER → 2024-07-18 10:45 | Outpatient (BNVA) | payer MEDICAID, SELFPAY | PROVIDERS: PCP Nurse Practitioner; Visit Provider Emergency Medicine | DX: O16.5 Unspecified maternal hypertension, complicating the puerperium (principal) | CPT/HCPCS: 81000 ==

== ENCOUNTER 2025-01-06 14:44 | Inpatient (IN) | payer MEDICAID, SELFPAY ==
[2025-01-06 14:46] VITALS: BP 149/102; PULSE 85; RESP 16; TEMP 37.1; O2SAT 98; BMI 35.0
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
[2025-01-06 15:45] LABS: Basophils % 0.2 %; Eosinophils # 0.2 10^3/uL (0.0-0.8); Eosinophils % 2.3 %; Hematocrit 39.9 % (36-47); Lymphocytes # 2.4 10^3/uL (0.8-4.8); Lymphocytes % 25.2 %; Mean Corpuscular HGB Conc 32.3 g/dL (30-55); Mean Corpuscular Hemoglobin 28.6 pg (27-33); Mean Corpuscular Volume 88.5 fl (85-98); Mean Platelet Volume 10.5 fL (7.4-10.4); Monocytes # 0.7 10^3/uL (0.2-0.9); Monocytes % 7.4 %; Neutrophils # 6.17 10^3/uL (1.8-7.7); Neutrophils % 64.5 %; Nucleated Red Blood Cells % 0 %; Platelet Count 335 10^3/cmm (157-399); Red Blood Count 4.51 10^6/uL (3.85-5.65); Red Cell Distribution Width 13.1 % (12.1-15.1); White Blood Count 9.57 10^3/uL (3.29-11.43)
[2025-01-06 15:58] LABS: HCG, Serum Qual Negative (Negative)
--- NOTE | 2025-01-06 15:58 | PC.NURSE ---
THIS NURSE PRESENT WITH PHYSICIAN WHILE REPORTING 96 HOUR HOLD. PATIENT UPSET ABOUT SITUATION. PATIENT STATES SHE IS STRICTLY BREAST FEEDING HER CHILD. PATIENT STATES SHE HAS TRIED BOTTLES AND ATTEMPTING TO EAT SOLID FOODS, BUT PATIENT CHILD REFUSES TO EAT EITHER ONE. PATIENT ENCOURAGED THAT PLAN IS BEING MADE TO KEEP CHILD FED. PATIENT STATES IF I CAN'T FEED MY BABY, AND SHE STARVES, I WILL KATHLEEN. HOUSE SUP AND PROVIDER CONTINUE TO ENCOURAGE PATIENT THAT SOLUTION WILL BE PROVIDED.
[2025-01-06 16:03] LABS: Alanine Aminotransferase 10 U/L (0-33); Albumin Level 4.2 g/dL (3.5-5.2); Alkaline Phosphatase 167 U/L (35-105); Anion Gap 13.8 (5-19); Aspartate Amino Transferase 18 U/L (0-32); Blood Urea Nitrogen 10 mg/dL (6-20); Calcium 9.2 mg/dL (8.5-10.5); Carbon Dioxide 27 mmol/L (22-29); Chloride 102 mmol/L (98-107); Globulin 3.3 g/dL (1.3-4.6); Glucose 86 mg/dL (65-115); Osmolality Calculated 286 mOsm/kg (285-295); Potassium 3.8 mmol/L (3.5-5.1); Sodium 139 mmol/L (136-145); Total Bilirubin 0.2 mg/dL (0.15-1.2); Total Protein 7.5 g/dL (6.6-8.7)
[2025-01-06 16:07] LABS: Acetaminophen < 5.0 ug/mL (10-30); Salicylate < 0.3 mg/dL (3-10)
--- NOTE | 2025-01-06 16:09 | PC.NURSE ---
This nurse accompanied Dr. Chamberlain to patients room to read patient her 96 hour hold rights and to let her know that she is on a 96 hour hold. Patient became very upset and stated I can not stay here, I will be leaving right now. My baby is exclusively breast feeding and will not take a bottle, a dropper, or even drink my breast milk from a spoon. I cant pump because she wont take a bottle. She is 6 months old and you guys are going to let her and i will never see her again. My last moments with her will be with her sleeping. This nurse went over patients 96 hour hold rights and explained to her that we will coordinate a plan for her to continue to breast feed and this nurse will inform her of the plan. The patient appear to be more calm after this discussion and verbalized understandings. Copy of rights given to patient.
--- NOTE | 2025-01-06 16:55 | PC.NURSE ---
PATIENT BREAST FED CHILD WITH [employer] REPRESENTATIVE AT BEDSIDE.
[2025-01-06 17:14] LABS: Amphetamines Screen Urine Negative (Negative); Barbiturates Screen Urine Negative (Negative); Benzodiazepines Screen Urine Negative (Negative); Cocaine Screen Urine Negative (Negative); Opiate Screen Urine Negative (Negative); PCP Screen Urine Negative (Negative); THC Screen Urine Negative (Negative)
[2025-01-06 17:36] VITALS: BP 132/83; PULSE 72; O2SAT 99
[2025-01-06 17:59] VITALS: BP 140/99; PULSE 97; RESP 17; TEMP 36.3; O2SAT 99
[2025-01-06 20:01] VITALS: BP 136/91; PULSE 107; RESP 17; TEMP 36.9; O2SAT 97
[2025-01-07 06:00] VITALS: BP 120/82; PULSE 98; RESP 17; TEMP 36.7; O2SAT 100
[2025-01-07] MEDS: acetaminophen 325 mg Tablet 650 MG PO (11:01)
[2025-01-07 13:49] VITALS: BP 119/80; PULSE 101; RESP 16; TEMP 36.9; O2SAT 97
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
[2025-01-07 20:54] VITALS: BP 134/88; PULSE 99; RESP 18; TEMP 36.7; O2SAT 97
[2025-01-08 06:00] VITALS: BP 133/92; PULSE 96; RESP 17; TEMP 36.8; O2SAT 95
[2025-01-08 14:00] VITALS: BP 137/93; PULSE 104; RESP 16; TEMP 36.6; O2SAT 99
--- NOTE | 2025-01-08 14:21 | PC.NURSE ---
spoke with pt spouse Haim, he states pt seems to have more energy more like her normal self. pt seems more rested and seems excited to go home. haim stated he believes she was overwhelmed but that seems to have been resolved. Haim stated He believes she is good to come home and does not believer she is a danger to self or children. haim states once she is back on her medication he believes she will be good to go.
[2025-01-08] MEDS: sertraline 50 mg Tablet PO (14:40)
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
[2025-01-08 15:11] VITALS: BP 137/93; PULSE 104; RESP 16; TEMP 36.6; O2SAT 99
== END 2025-01-08 15:34 | disposition home or self-care (01) | DRG 885 ==
LOC: ER 15:32 → NP 17:10
PROVIDERS: Admitting Provider Psychiatry & Neurology Psychiatry; Emergency Provider Family Medicine; PCP Nurse Practitioner; Visit Provider Psychiatry & Neurology Psychiatry
DX: F23 Brief psychotic disorder (principal); R45.851 Suicidal ideations; F32.A Depression, unspecified; F43.25 Adjustment disorder with mixed disturbance of emotions and conduct; F43.10 Post-traumatic stress disorder, unspecified; F41.9 Anxiety disorder, unspecified; Z81.8 Family history of other mental and behavioral disorders; M85.00 Fibrous dysplasia (monostotic), unspecified site; Z86.16 Personal history of COVID-19; E66.9 Obesity, unspecified; Z68.35 Body mass index [BMI] 35.0-35.9, adult
CPT/HCPCS: 36415; 80053; 80306; 80307; 84703; 85025; 97150; 97165; 99285; J9999